=== PATIENT | male | born 1990 | race Caucasian/White ===

== ENCOUNTER 2018-12-27 21:06 | Emergency (ER) | payer BC ==
[2018-12-27 21:14] VITALS: TEMP 98.5
[2018-12-27] MEDS ORDERED: MORPHINE SULFATE 4 MG/ML SYRINGE IM STA (22:05)
[2018-12-27] MEDS ORDERED: ceFAZolin 1,000 MG VIAL (IM USE) IM STA (22:05)
[2018-12-27] MEDS ORDERED: LIDOCAINE 1% INJ 10MG/ML (20 ML MDV) SQ ONE (22:06)
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
--- NOTE | 2018-12-27 22:48 | XR ---
EXAM: XR Left Ankle Complete, 3 or More Views CLINICAL HISTORY: ITS.REASON XR Reason: Pain TECHNIQUE: Frontal, lateral and oblique views of the left ankle. COMPARISON: None. FINDINGS: Bones/joints: Unremarkable. No acute fracture. No dislocation. Soft tissues: There is a laceration overlying the medial malleolus with punctate hyperdensity potentially representing foreign body. IMPRESSION: 1. There is a laceration overlying the medial malleolus with punctate hyperdensity potentially representing foreign body. 2. No acute osseous abnormality.
--- NOTE | 2018-12-27 22:50 | XR ---
EXAM: XR Left Foot Complete, 3 or More Views CLINICAL HISTORY: ITS.REASON XR Reason: Pain TECHNIQUE: Frontal, lateral and oblique views of the left foot. COMPARISON: None. FINDINGS: Bones/joints: Incidental note is made of an os navicular. No acute fracture. No dislocation. Soft tissues: Laceration overlying the medial malleolus with punctate hyperdensity potentially representing a foreign body. IMPRESSION: 1. Laceration overlying the medial malleolus with punctate hyperdensity potentially representing a foreign body. 2. No acute osseous abnormality.
[2018-12-28 00:55] VITALS: BP 107/81; PULSE 68; RESP 18
--- NOTE | 2018-12-30 04:08 | CDI ---
Dear Cesar Overton MD: Please do addendum length of the left elbow laceration repaired. Thank you, Axel Santillan, Phlebotomist Supervisor/Instructor. If you have any questions, please contact Graphic Illustrator at [phone]. [facility]
== END 2018-12-28 00:55 | disposition home or self-care (01) ==
LOC: EC 21:06
DX: S91.012A Laceration without foreign body, left ankle, initial encounter (principal); S51.012A Laceration without foreign body of left elbow, initial encounter; S80.812A Abrasion, left lower leg, initial encounter; V86.56XA Driver of dirt bike or motor/cross bike injured in nontraffic accident, initial encounter; Y93.89 Activity, other specified; Y92.410 Unspecified street and highway as the place of occurrence of the external cause
CPT/HCPCS: 99283; 12032; 12001; 96372 ×2; 73610; 73630; J2270; J0690; J2001